=== PATIENT | female | born 1970 | race Caucasian/White ===

== ENCOUNTER → 2021-05-05 | Outpatient (CLI) | payer BC ==
--- NOTE | 2021-05-08 08:45 | MM ---
Reason for exam: screening (asymptomatic). Baseline mammogram. Physical Findings: A clinical breast exam by your physician is recommended on an annual basis and results should be correlated with mammographic findings. MG Screening Mammo w CAD Bilateral CC, MLO, and XCCL view(s) were taken. There are scattered fibroglandular densities. Finding: There are typically benign round calcifications in both breasts. Focal asymmetry 9mm anterior middle depth MLO view only. ASSESSMENT: Incomplete: need additional imaging evaluation, BI-RAD 0 RECOMMENDATION: Special view mammogram of the right breast. If lesion persists on supplemental views, image directed ultrasound is recommended. [facility] will attempt to contact patient to return for supplemental views and ultrasound if indicated.
== END | disposition home or self-care (01) ==
LOC: RADMAMWWP 12:58
PROVIDERS: ATTEND Family Medicine
DX: Z12.31 Encounter for screening mammogram for malignant neoplasm of breast (principal)
CPT/HCPCS: 77067

== ENCOUNTER → 2021-05-10 | Outpatient (CLI) | payer BC ==
--- NOTE | 2021-05-10 07:57 | MM ---
Reason for exam: additional evaluation requested from abnormal screening. Last mammogram was performed less than 1 month ago. Physical Findings: A clinical breast exam by your physician is recommended on an annual basis and results should be correlated with mammographic findings. MG Work Up Mamm w CAD RT LM and spot compression MLO view(s) were taken of the right breast. Prior study comparison: May 05, 2021, bilateral MG screening mammo w CAD. There are scattered fibroglandular densities. Focal asymmetry does not persist. These results were verbally communicated with the patient and result sheet given to the patient on 05/10/21. ASSESSMENT: Probably benign, BI-RAD 3 RECOMMENDATION: Follow-up diagnostic mammogram of the right breast in 6 months.
== END | disposition home or self-care (01) ==
LOC: RADMAMWWP 07:03
PROVIDERS: ATTEND Family Medicine
DX: R92.8 Other abnormal and inconclusive findings on diagnostic imaging of breast (principal)
CPT/HCPCS: 77065